=== PATIENT | female | born 1960 | race Two or more races ===

== ENCOUNTER 2018-10-01 09:07 | Emergency (ER) | payer SELFPAY ==
[2018-10-01] MEDS: HYDROmorphONE 0.5 MG/0.5 ML SYG IM (09:53)
[2018-10-01] MEDS: ONDANSETRON (ODT) 4 MG TAB ODT (09:53)
== END 2018-10-01 12:06 | disposition home or self-care (01) ==
LOC: FTE 09:07
DX: M79.605 Pain in left leg (principal)
CPT/HCPCS: 72100; 73030; 73510; 93971; 96372; 99285-25

== ENCOUNTER 2018-10-16 15:04 | Emergency (ER) | payer SELFPAY ==
[2018-10-16] MEDS: ONDANSETRON (ODT) 4 MG TAB ODT (16:48)
[2018-10-16] MEDS: HYDROmorphONE 2 MG/ML SYG IM (16:48)
== END 2018-10-16 17:18 | disposition home or self-care (01) ==
LOC: FTE 17:18
DX: M54.5 Low back pain (principal); M79.605 Pain in left leg
CPT/HCPCS: 96372; 99284-25